=== PATIENT | female | born 1975 | race Caucasian/White ===

== ENCOUNTER 2024-03-23 20:43 | Observation (INO) ==
[2024-03-23] MEDS: ONDANSETRON INJ 2 MG/ML 2 ML VIAL IV STA ×2 (21:00→22:33)
[2024-03-23 21:30] LABS: BUN Creatinine Ratio 12.9 (10-20); Basophils # (auto) 0.05 K/uL (0.00-0.20); Basophils % (auto) 0.6 %; Calcium 9.6 mg/dl (8.6-10.3); Creatinine Clr Calc Pharmacy 146.8 ml/min; Eosinophils # (auto) 0.26 K/uL (0.00-0.50); Eosinophils % (auto) 3.2 %; Est GFR (African American) 123.6 ml/min; Est GFR (Non-African American) 106.6 ml/min; Hematocrit (blood only) 41.6 % (37.0-47.0); Hemoglobin 13.4 g/dl (12.0-16.0); Immature Granulocytes # (auto) 0.04 K/uL (0.01-0.20); Immature Granulocytes % (auto) 0.5 %; Lymphocytes # (auto) 1.48 K/uL (1.20-3.40); Lymphocytes % (auto) 18.1 %; Mean Corpuscular Hemoglobin 26.9 pg (25.0-34.0); Mean Corpuscular Hgb Conc 32.2 g/dL (32.0-36.0); Mean Corpuscular Volume 83.5 fL (80.0-100.0); Mean Platelet Volume 10.2 fL (9.4-12.4); Monocytes # (auto) 0.56 K/uL (0.11-0.59); Monocytes % (auto) 6.9 %; Neutrophils # (auto) 5.77 K/uL (1.40-6.50); Neutrophils % (auto) 70.7 %; Platelet Count 261 K/uL (130-400); Potassium 3.9 mmol/L (3.5-5.1); RDW Coefficient of Variation 14.2 % (11.5-14.5); RDW Standard Deviation 42.9 fL (36.4-46.3); Red Blood Count 4.98 M/uL (4.20-5.40); White Blood Count 8.16 K/ul (4.8-10.8)
[2024-03-23 21:44] LABS: Pregnancy Test, Serum Negative (Negative)
[2024-03-23 21:53] LABS: Albumin Globulin Ratio 1.3 (0.9-2); Albumin Level 4.3 gm/dl (3.4-5.0); Bilirubin,Total 2.4 mg/dl (0.2-1.0); Globulin 3.3 gm/dl (2.5-4.0); Total Protein 7.6 gm/dl (6.0-8.3)
--- NOTE | 2024-03-23 22:15 | Emergency Department Note ---
History of Present Illness General Chief complaint: GI Assessment Stated complaint: ABD PAIN, VOMITING, POOR APPETITE, HERNIA Time Seen by Provider: 03/23/24 22:12 History of Present Illness Maximum Pain Intensity: 6 NAME: ANDREW LORENZO AGE: 48 SEX: F : 1975 ARRIVES VIA: Walk-In INFORMANT: Patient ED PROVIDER(S): LIDIA Arndt, Liv Foy MD The patient is a pleasant 48-year-old female who arrives to the emergency department for evaluation of upper abdominal pain. She reports a history of a hiatal hernia, as well as GERD. She reports her low abdominal region feels tender and sore as well. She reports she has been vomiting since Tuesday/Tuesday of this week. She states she recently traveled from [facility] that to [place] and back to [place]. She reports her stool has been white in color, and not normal. She reports no dysuria, however states she has had some dark urine. She denies fever. Home Medications Medication Instructions Recorded Confirmed Type esomeprazole magnesium 20 mg 20 mg PO DAILY 02/20/21 03/24/24 History capsule,delayed release (Nexium) phentermine 15 mg capsule 15 mg PO DAILY #30 caps 01/24/24 03/24/24 Rx metformin 500 mg tablet,extended 500 mg PO BIDWMEAL #180 tabs 01/31/24 03/24/24 Rx release 24 hr Allergies Allergy/AdvReac Type Severity Reaction Status Date / Time nickel Allergy Intermediate *All Unverified 03/24/24 08:49 metals cause skin irritation grass pollen Allergy Unknown Verified 03/24/24 08:49 Sunscreen Allergy Intermediate Skin Uncoded 03/24/24 08:49 Irritation Past Med/Surg History Problem List (Updated 03/25/24 @ 00:49 by LIDIA Samayoa) Choledocholithiasis with obstruction Abnormal LFTs (Acute) Pancreatitis (Acute) Emesis, persistent Abdominal pain (Acute) Acute URI of multiple sites High triglycerides Prediabetes Urinary symptom or sign Left lateral ankle pain Vision changes Shortness of breath Influenza A Fatigue Obesity Seasonal allergies Routine health maintenance Screening for lipid disorders GERD (gastroesophageal reflux disease) Medical History History of gestational diabetes with 2 out of 3 pregnancies HH (hiatus hernia) History of colon polyps Gastritis History of gastroscopy 10/06/2018 & 10/30/2020 Surgical History History of salpingectomy History of colonoscopy 10/11/2017 (did have polyps & 1st degree hemorrhoids) 10/30/2020(results were normal History of ovarian cystectomy 2016 History of wisdom tooth extraction [id number] Family History Grandfather (Paternal) Myocardial infarction Father Diabetes Grandmother (Paternal) Cancer Pancreatic cancer Denies family history of Ovarian cancer Prostate cancer Breast cancer Colorectal cancer Social History Smoking Status: Never smoker Second Hand Exposure: No; Do You Dip or Chew Tobacco: No; Hx Alcohol Use: No Hx Substance Use: No Preferred Language: Frisian Communication Ability: Effective Clinical Practice Consultant Required: No Beliefs That Will Affect Care: None marital status: / Current Living Situation: Parent Current Living Situation Comment: Lives w/parents & kids current occupational status: employed current occupation: Self employed How many Children do You have: 3 Feels Safe at Home: Yes caffeine: No Dental Care, Regularly: No Physical Activity Frequency: 1-2 Times per Week Seatbelt Use: always Sunscreen Use: No Physical Exam Vital Signs Vital Signs - 24 hr 03/24/24 01:33 03/24/24 02:03 03/24/24 02:30 Pulse Rate 81 56 L Respiratory Rate 12 13 Blood Pressure 177/113 H 156/99 H 164/96 H Blood Pressure Mean 134 118 131 Pulse Oximetry 95 94 03/24/24 02:46 Pulse Rate 66 Respiratory Rate Blood Pressure Blood Pressure Mean Pulse Oximetry VITALS: Vitals are noted on the nurse's note and reviewed by myself. Vital signs stable. GENERAL: 48-year-old female, in no acute distress, nondiaphoretic, well- developed well-nourished. SKIN: The skin was without rashes, erythema, edema, or bruising. HEAD: Normocephalic atraumatic. HEART: Regular rate and rhythm without murmurs gallops or rubs. LUNGS: Clear to auscultation bilaterally without wheezes, rales or rhonchi. No retractions or accessory muscle use. ABDOMEN: Positive bowel sounds x 4. Soft, tender to palpation diffusely across the upper abdomen, with no rebound tenderness or guarding. MUSCULOSKELETAL: No muscle atrophy, erythema, or edema noted. Normal gait. Strength 5/5 throughout. NEURO: Patient was alert and oriented to person place and time. No focal neurological deficits. Course Administered Medications Pantoprazole Sodium 40 mg/ (Syringe) 10 mls @ 5 mls/min IV DAILY@1100 [facility] Stop: 04/23/24 10:59 Last Admin: 03/24/24 11:07 Dose: 5 mls/min Documented By: LEONARD Famotidine (Pepcid 20mg Iv Push) 20 mg in 5 mls @ 2.5 mls/min IV Q12H [facility] Stop: 04/23/24 17:59 Last Admin: 03/24/24 18:13 Dose: 2.5 mls/min Documented By: JEANETTE Morphine Sulfate (Morphine Sulfate 2 Mg/Ml Carp) 2 mg IV Q3H PRN PRN Reason: Pain (1-5 intensity) Stop: 04/07/24 06:12 Last Admin: 03/24/24 21:36 Dose: 2 mg Documented By: MACK Ondansetron HCl (Ondansetron Inj 2 Mg/Ml 2 Ml Vial) 4 mg IV Q6H PRN PRN Reason: Nausea Stop: 04/23/24 06:12 Last Admin: 03/24/24 07:22 Dose: 4 mg Documented By: MMKarishma Discontinued Medications Sodium Chloride (Nss) 500 mls @ 999 mls/hr IV .Q31M STA Stop: 03/23/24 21:26 Last Infusion: 03/23/24 23:41 Dose: Infused Documented By: Admin: 03/23/24 22:31 Dose: 999 mls/hr Documented By: CHARLOTTE Sodium Chloride (Nss) 1,000 mls @ 999 mls/hr IV .Q1H1M ONE Stop: 03/23/24 23:18 Last Infusion: 03/23/24 23:41 Dose: Infused Documented By: Admin: 03/23/24 22:32 Dose: 999 mls/hr Documented By: CHARLOTTE Acetaminophen (Ofirmev) 1,000 mg in 100 mls @ 400 mls/hr IV NOW STA Stop: 03/23/24 22:32 Last Infusion: 03/23/24 23:39 Dose: Infused Documented By: Admin: 03/23/24 22:34 Dose: 400 mls/hr Documented By: CHARLOTTE Sodium Chloride (Nss) 1,000 mls @ 999 mls/hr IV .Q1H1M ONE Stop: 03/24/24 01:55 Last Infusion: 03/24/24 02:39 Dose: Infused Documented By: Admin: 03/24/24 01:22 Dose: 999 mls/hr Documented By: CHARLOTTE Famotidine (Pepcid 20mg Iv Push) 20 mg in 5 mls @ 2.5 mls/min IV NOW STA Stop: 03/24/24 06:24 Last Admin: 03/24/24 06:42 Dose: 2.5 mls/min Documented By: Lactated Ringer's (Lr) 1,000 mls @ 150 mls/hr IV .Q6H40M DENYS Stop: 03/24/24 21:19 Last Infusion: 03/24/24 22:46 Dose: Infused Documented By: Admin: 03/24/24 16:05 Dose: 150 mls/hr Documented By: Infusion: 03/24/24 14:50 Dose: Infused Documented By: Admin: 03/24/24 08:09 Dose: 150 mls/hr Documented By: LEONARD Ioversol (Optiray 320 125ml) 115 ml IV ONCE ONE Stop: 03/23/24 23:24 Last Admin: 03/23/24 23:24 Dose: 115 ml Documented By: RICHIE Ketorolac Tromethamine (Ketorolac Tromethamine 15 Mg/Ml Vial) 15 mg IV NOW ONE Stop: 03/23/24 22:19 Last Admin: 03/23/24 22:33 Dose: 15 mg Documented By: CHARLOTTE Morphine Sulfate (Morphine Sulfate 4 Mg/Ml 1 Ml Carp\Vial) 4 mg IV NOW STA Stop: 03/24/24 01:25 Last Admin: 03/24/24 01:28 Dose: 4 mg Documented By: CHARLOTTE Ondansetron HCl (Ondansetron Inj 2 Mg/Ml 2 Ml Vial) 4 mg IV NOW STA Stop: 03/23/24 20:57 Last Admin: 03/23/24 21:00 Dose: 4 mg Documented By: SKY Ondansetron HCl (Ondansetron Inj 2 Mg/Ml 2 Ml Vial) 4 mg IV NOW STA Stop: 03/23/24 22:19 Last Admin: 03/23/24 22:33 Dose: 4 mg Documented By: CHARLOTTE Medical Decision Making Differential Diagnosis Appendicitis, ovarian cyst, infections, diverticulitis, UTI, obstruction, mesenteric ischemia, aortic pathology, inflammatory bowel disease, renal colic, PUD, pancreatitis, biliary pathology, hernia, volvulus, constipation, as well as other pathologies. Medical Records Attestation: I reviewed the patient's medical records. Home Medications Current Medication List: was personally reviewed by me Laboratory Data Attestation: I reviewed the patient's lab results. CBC shows no leukocytosis, with a stable hemoglobin and hematocrit, CMP is unremarkable. AST, ALT, alk phos, total bili elevated. Lipase 5501. 03/23/24 20:58 03/23/24 20:58 Lab Results 03/23/24 Range/Units 20:58 WBC 8.16 (4.8-10.8) K/ul RBC 4.98 (4.20-5.40) M/uL Hgb 13.4 (12.0-16.0) g/dl Hct 41.6 (37.0-47.0) % MCV 83.5 (80.0-100.0) fL MCH 26.9 (25.0-34.0) pg MCHC 32.2 (32.0-36.0) g/dL RDW Std Deviation 42.9 (36.4-46.3) fL RDW Coeff of Gagan 14.2 (11.5-14.5) % Plt Count 261 (130-400) K/uL MPV 10.2 (9.4-12.4) fL Immature Gran % (Auto) 0.5 % Neut % (Auto) 70.7 % Lymph % (Auto) 18.1 % [place] % (Auto) 6.9 % Eos % (Auto) 3.2 % Baso % (Auto) 0.6 % Neut # (Auto) 5.77 (1.40-6.50) K/uL Lymph # (Auto) 1.48 (1.20-3.40) K/uL [place] # (Auto) 0.56 (0.11-0.59) K/uL Eos # (Auto) 0.26 (0.00-0.50) K/uL Baso # (Auto) 0.05 (0.00-0.20) K/uL Immature Gran # (Auto) 0.04 (0.01-0.20) K/uL Sodium 136 (136-145) mmol/L Potassium 3.9 (3.5-5.1) mmol/L Chloride 103 (98-107) mmol/L Carbon Dioxide 24 (21-32) mmol/L Anion Gap 9 (3-11) BUN 8 (6-23) mg/dl Creatinine 0.62 (0.6-1.2) mg/dl Est Cr Clr Drug Dosing 146.8 ml/min Est GFR ( Amer) 123.6 ml/min Est GFR (Non-Af Amer) 106.6 ml/min BUN/Creatinine Ratio 12.9 (10-20) Glucose 127 H (70-99(Fasting)) mg/dl Calcium 9.6 (8.6-10.3) mg/dl Total Bilirubin 2.4 H (0.2-1.0) mg/dl Direct Bilirubin 1.7 H (0-0.2) mg/dl AST 505 H (13-39) U/L ALT 856 H (7-52) U/L Alkaline Phosphatase 226 H (34-104) U/L Total Protein 7.6 (6.0-8.3) gm/dl Albumin 4.3 (3.4-5.0) gm/dl Globulin 3.3 (2.5-4.0) gm/dl Albumin/Globulin Ratio 1.3 (0.9-2) Lipase 5501 H (11-82) U/L HCG, Qual Negative (Negative) Blood Pressure Blood Pressure Findings: Elevated blood pressure Blood Pressure Disposition: elevated BP felt to be situational MDM Narrative The patient is a pleasant 48-year-old female who arrives to the emergency department for evaluation of the above-stated complaint. Upon examination the patient appears to have discomfort in the upper abdomen, with diffuse tenderness in the lower abdomen as well. A saline lock was established, CBC, CMP, lipase, hepatic panel, serum , were obtained. CBC shows no leukocytosis, with a stable hemoglobin and hematocrit, CMP is unremarkable. AST, ALT, alk phos, total bili elevated. Lipase 5501. CT imaging of the abdomen and pelvis was obtained with IV contrast which showed no acute findings, cholelithiasis was appreciated, however specifically no cholecystitis, or common bile duct dilation. Ultrasound imaging of the gallbladder was obtained which showed no dilation of the common bile duct, specifically no obstructing stones. The patient was provided 2 L of normal saline, as well as 4 mg of IV Zofran, and 4 mg of IV morphine for pain control. Upon reevaluation I discussed the elevated lipase, and hepatic panel results. The patient reports she does not currently drink alcohol, and states no previous history of pancreatitis. Consult was obtained from gastroenterology who recommended MRCP, and hospital admission for management of the pancreatitis. I did consult general surgery who stated the patient is nonsurgical, and should be followed by gastroenterology. Case management was contacted regarding hospital admission, who facilitated contact with the [facility] hospitalist group. Dr. Melissa Hogan from the [facility] hospitalist group agreed to accept the patient for further workup and care. Please refer to her documentation for further patient treatment. Continuous bus monitor: Order was placed for continuous bus monitor. Patient was placed on the bus monitor. Patient was noted to be in normal sinus rhythm at an initial rate of 64 bpm. Impression & Plan Abnormal LFTs, Pancreatitis, Abdominal pain Discharge Plan Visit Data Chief Complaint: GI Assessment Stated Complaint: ABD PAIN, VOMITING, POOR APPETITE, HERNIA ED Provider: Liv Foy ED Midlevel Provider: Alcira Wynne Discharge Problem: Abnormal LFTs, Pancreatitis, Abdominal pain Patient Disposition: Admitted As Inpatient Discharge Instructions Interventions: ED Discharge Assessment Last Done: 03/24/24 06:13
[2024-03-23] MEDS: SODIUM CHLORIDE 0.9% 500 ML IV STA (22:31)
[2024-03-23] MEDS: SODIUM CHLORIDE 0.9% 1,000 ML IV ONE (22:32)
[2024-03-23] MEDS: KETOROLAC TROMETHAMINE 15 MG/ML VIAL IV ONE (22:33)
[2024-03-23] MEDS: ACETAMINOPHEN 1,000 MG/100 ML VIAL IV STA (22:34)
[2024-03-23] MEDS: OPTIRAY 320 125ml IV ONE (23:24)
--- NOTE | 2024-03-24 00:51 | CT Scan Report ---
Exam(s): CT ABDOMEN + PELVIS With Contrast IV Amt: 93 ml EXAM: CT Abdomen and Pelvis With Intravenous Contrast CLINICAL HISTORY: Reason for exam: epigastric pain. TECHNIQUE: Axial computed tomography images of the abdomen and pelvis with intravenous contrast. CTDI is 28 mGy and DLP is 1485 mGy-cm. Automated exposure control was utilized for the study. A dose lowering technique was utilized adhering to the principles of ALARA. CONTRAST: Patient received 93 ml of IV contrast COMPARISON: No relevant prior studies available. FINDINGS: Lung bases: Unremarkable. No mass. No consolidation. ABDOMEN: Liver: Fatty infiltration of liver. Gallbladder and bile ducts: Cholelithiasis without CT evidence to suggest acute cholecystitis. No ductal dilation. Pancreas: Unremarkable. No mass. No ductal dilation. Spleen: Unremarkable. No splenomegaly. Adrenals: Unremarkable. No mass. Kidneys and ureters: Subcentimeter hypodensity lower pole right kidney representing cyst. 1 cm hypodensity lower pole left kidney likely representing a cyst. No hydronephrosis. Stomach and bowel: Diverticulosis without evidence of diverticulitis. No obstruction. PELVIS: Appendix: Normal appearing appendix. Bladder: Unremarkable. No mass. Reproductive: Unremarkable as visualized. ABDOMEN and PELVIS: Intraperitoneal space: Unremarkable. No free air. No significant fluid collection. Bones/joints: No acute fracture. No dislocation. Soft tissues: Unremarkable. Vasculature: Unremarkable. No abdominal aortic aneurysm. Lymph nodes: Unremarkable. No enlarged lymph nodes. IMPRESSION: No acute findings in the abdomen or pelvis. Electronically signed by: Miguel A Levine MD 03/24/24 00:51 AM
[2024-03-24] MEDS: SODIUM CHLORIDE 0.9% 1,000 ML IV ONE (01:22)
[2024-03-24] MEDS: MoRPHine SULFATE 4 MG/ML 1 ML CARP\\VIAL IV STA (01:28)
--- NOTE | 2024-03-24 02:02 | History & Physical Report ---
"Date of Service March 24, 2024 Assessment & Plan (1) Abdominal pain: (2) Emesis, persistent: (3) GERD (gastroesophageal reflux disease): Plan Pancreatitis | Abdominal Pain | Frequent Nausea and Emesis -CT A/P, ultrasound completed which shows cholelithiasis without acute cholecystitis -Lipase elevated at 5501 -Elevated AST, ALT, alk phos -ED provider discussed with GI, consultation and MRCP ordered -Continue with anti-emetics, will add famotidine and protonix in setting of chronic GERD -IV hydration, NPO for now. IV pain medication PRN. -Repeat CBC, CMP in a.m. Admit to med/surg Diet: NPO, IVF VTE Prophylaxis: low risk, defer prophylaxis at this time Code Status: Full Code History of Present Illness Primary Care Provider: Ninfa Barajas MD Isaura Garsia is a 48 year-old female who presented to the ED for ongoing symptoms of abdominal pain, nausea for several weeks. She has a PMH of prediabetes, GERD, hiatal hernia, and obesity. She reports that for several weeks she has had episodes of nausea, vomiting and generally feeling unwell. Has history of recent travel to [facility] and then [place] in mid February where she states she could barely take in any food because it would immediately lead to vomiting. States she initially thought it was just secondary to jet-lag or a food intolerance, and when she returned to [place] she resumed her home metformin which only seemed to make her symptoms worsen. States in the past month she has had BMs that have ranged from dark/tar like several weeks ago to pale/watery/pencil thin in the past few days. Today she states that the abdominal discomfort does not seem to be localized to one precise region. Denies any recent insect bites while at home or abroad in [facility]. ED Course: -CT A/P, US abdomen -CBC, CMP, Lipase, test Allergies Allergy/AdvReac Type Severity Reaction Status Date / Time grass pollen Allergy Unknown Verified 03/24/24 06:21 Home Medications Medication Instructions Recorded Confirmed Type acetaminophen 325 mg capsule 400 mg PO Q6H PRN 02/20/21 01/24/24 History (Tylenol) esomeprazole magnesium 20 mg 20 mg PO DAILY 02/20/21 01/24/24 History capsule,delayed release (Nexium) loratadine 10 mg tablet (Claritin) 10 mg PO DAILY PRN allergy symptoms 02/20/21 01/24/24 History ibuprofen 200 mg tablet 200 mg PO Q6H PRN 07/21/23 01/24/24 History doxycycline monohydrate 100 mg 100 mg PO BID #20 caps 01/13/24 01/24/24 Rx capsule phentermine 15 mg capsule 15 mg PO DAILY #30 caps 01/24/24 01/24/24 Rx metformin 500 mg tablet,extended 500 mg PO BIDWMEAL #180 tabs 01/31/24 Rx release 24 hr Past Med/Surg History Problem List Emesis, persistent Abdominal pain Acute URI of multiple sites High triglycerides Prediabetes Urinary symptom or sign Left lateral ankle pain Vision changes Shortness of breath Influenza A Fatigue Obesity Seasonal allergies Routine health maintenance Screening for lipid disorders GERD (gastroesophageal reflux disease) Medical History History of gestational diabetes with 2 out of 3 pregnancies HH (hiatus hernia) History of colon polyps Gastritis History of gastroscopy 10/06/2018 & 10/30/2020 Surgical History History of salpingectomy History of colonoscopy 10/11/2017 (did have polyps & 1st degree hemorrhoids) 10/30/2020(results were normal History of ovarian cystectomy 2016 History of wisdom tooth extraction [id number] Family History Grandfather (Paternal) Myocardial infarction Father Diabetes Grandmother (Paternal) Cancer Pancreatic cancer Denies family history of Ovarian cancer Prostate cancer Breast cancer Colorectal cancer Social History Smoking Status: Never smoker Second Hand Exposure: No; Do You Dip or Chew Tobacco: No; Hx Alcohol Use: No Hx Substance Use: No Preferred Language: Russian Communication Ability: Effective Administration Internship Required: No Beliefs That Will Affect Care: None marital status: / Current Living Situation: Parent Current Living Situation Comment: Lives w/parents & kids current occupational status: employed current occupation: Self employed How many Children do You have: 3 Feels Safe at Home: Yes caffeine: No Dental Care, Regularly: No Physical Activity Frequency: 1-2 Times per Week Seatbelt Use: always Sunscreen Use: No Review of Systems Review of Systems: As per above Physical Exam 2 Constitutional: WD/WN, vitals as above Eyes: no conjunctival abnormality ENMT: Ears: no external ear abnormality Nose: no external nose abnormality Slightly tacky mucous membranes Respiratory: normal respiratory effort, lungs clear to auscultation Cardiovascular: Rate/Rhythm: regular rate and regular rhythm Extremities: no edema Gastrointestinal (Abdomen): Inspection/Auscultation: abdomen normal to inspection Percussion/Palpation: abdomen soft; abdomen nontender and no guarding Musculoskeletal: Moves all limbs independently Skin: no rashes, warm and dry Psychiatric: A+Ox3, euthymic affect Results & Data Results & Data Vital Signs (Past 12 Hours) Vital Signs Temp Pulse Pulse Resp BP BP Pulse Ox 03/24/24 00:30 62 12 165/111 H 94 03/23/24 23:30 71 12 157/92 H 96 03/23/24 23:06 65 12 162/100 H 97 03/23/24 22:37 64 15 177/101 H 97 03/23/24 22:31 73 03/23/24 20:53 36.0 C L 84 18 159/106 H 94 O2 Del Method 03/24/24 00:30 03/23/24 23:30 03/23/24 23:06 03/23/24 22:37 Room Air 03/23/24 22:31 03/23/24 20:53 Room Air Laboratory Results Laboratory Results WBC 8.16 K/ul (4.8-10.8) 03/23/24 20:58 RBC 4.98 M/uL (4.20-5.40) 03/23/24 20:58 Hgb 13.4 g/dl (12.0-16.0) 03/23/24 20:58 Hct 41.6 % (37.0-47.0) 03/23/24 20:58 MCV 83.5 fL (80.0-100.0) 03/23/24 20:58 MCH 26.9 pg (25.0-34.0) 03/23/24 20:58 MCHC 32.2 g/dL (32.0-36.0) 03/23/24 20:58 RDW Std Deviation 42.9 fL (36.4-46.3) 03/23/24 20:58 RDW Coeff of Gagan 14.2 % (11.5-14.5) 03/23/24 20:58 Plt Count 261 K/uL (130-400) 03/23/24 20:58 MPV 10.2 fL (9.4-12.4) 03/23/24 20:58 Immature Gran % (Auto) 0.5 % 03/23/24 20:58 Neut % (Auto) 70.7 % 03/23/24 20:58 Lymph % (Auto) 18.1 % 03/23/24 20:58 [place] % (Auto) 6.9 % 03/23/24 20:58 Eos % (Auto) 3.2 % 03/23/24 20:58 Baso % (Auto) 0.6 % 03/23/24 20:58 Neut # (Auto) 5.77 K/uL (1.40-6.50) 03/23/24 20:58 Lymph # (Auto) 1.48 K/uL (1.20-3.40) 03/23/24 20:58 [place] # (Auto) 0.56 K/uL (0.11-0.59) 03/23/24 20:58 Eos # (Auto) 0.26 K/uL (0.00-0.50) 03/23/24 20:58 Baso # (Auto) 0.05 K/uL (0.00-0.20) 03/23/24 20:58 Immature Gran # (Auto) 0.04 K/uL (0.01-0.20) 03/23/24 20:58 Sodium 136 mmol/L (136-145) 03/23/24 20:58 Potassium 3.9 mmol/L (3.5-5.1) 03/23/24 20:58 Chloride 103 mmol/L (98-107) 03/23/24 20:58 Carbon Dioxide 24 mmol/L (21-32) 03/23/24 20:58 Anion Gap 9 (3-11) 03/23/24 20:58 BUN 8 mg/dl (6-23) 03/23/24 20:58 Creatinine 0.62 mg/dl (0.6-1.2) 03/23/24 20:58 Est Cr Clr Drug Dosing 146.8 ml/min 03/23/24 20:58 Est GFR ( Amer) 123.6 ml/min 03/23/24 20:58 Est GFR (Non-Af Amer) 106.6 ml/min 03/23/24 20:58 BUN/Creatinine Ratio 12.9 (10-20) 03/23/24 20:58 Glucose 127 mg/dl (70-99(Fasting)) H 03/23/24 20:58 Calcium 9.6 mg/dl (8.6-10.3) 03/23/24 20:58 Total Bilirubin 2.4 mg/dl (0.2-1.0) H 03/23/24 20:58 Direct Bilirubin 1.7 mg/dl (0-0.2) H 03/23/24 20:58 AST 505 U/L (13-39) H 03/23/24 20:58 ALT 856 U/L (7-52) H 03/23/24 20:58 Alkaline Phosphatase 226 U/L (34-104) H 03/23/24 20:58 Total Protein 7.6 gm/dl (6.0-8.3) 03/23/24 20:58 Albumin 4.3 gm/dl (3.4-5.0) 03/23/24 20:58 Globulin 3.3 gm/dl (2.5-4.0) 03/23/24 20:58 Albumin/Globulin Ratio 1.3 (0.9-2) 03/23/24 20:58 Lipase 5501 U/L (11-82) H 03/23/24 20:58 HCG, Qual Negative (Negative) 03/23/24 20:58 Impressions Abdomen/Pelvis CT 03/23/24 22:17 Exam(s): CT ABDOMEN + PELVIS With Contrast IV Amt: 93 ml EXAM: CT Abdomen and Pelvis With Intravenous Contrast CLINICAL HISTORY: Reason for exam: epigastric pain. TECHNIQUE: Axial computed tomography images of the abdomen and pelvis with intravenous contrast. CTDI is 28 mGy and DLP is 1485 mGy-cm. Automated exposure control was utilized for the study. A dose lowering technique was utilized adhering to the principles of ALARA. CONTRAST: Patient received 93 ml of IV contrast COMPARISON: No relevant prior studies available. FINDINGS: Lung bases: Unremarkable. No mass. No consolidation. ABDOMEN: Liver: Fatty infiltration of liver. Gallbladder and bile ducts: Cholelithiasis without CT evidence to suggest acute cholecystitis. No ductal dilation. Pancreas: Unremarkable. No mass. No ductal dilation. Spleen: Unremarkable. No splenomegaly. Adrenals: Unremarkable. No mass. Kidneys and ureters: Subcentimeter hypodensity lower pole right kidney representing cyst. 1 cm hypodensity lower pole left kidney likely representing a cyst. No hydronephrosis. Stomach and bowel: Diverticulosis without evidence of diverticulitis. No obstruction. PELVIS: Appendix: Normal appearing appendix. Bladder: Unremarkable. No mass. Reproductive: Unremarkable as visualized. ABDOMEN and PELVIS: Intraperitoneal space: Unremarkable. No free air. No significant fluid collection. Bones/joints: No acute fracture. No dislocation. Soft tissues: Unremarkable. Vasculature: Unremarkable. No abdominal aortic aneurysm. Lymph nodes: Unremarkable. No enlarged lymph nodes. IMPRESSION: No acute findings in the abdomen or pelvis. Electronically signed by: Miguel A Levine MD 03/24/24 00:51 AM Gallbladder Ultrasound 03/24/24 00:00 Exam(s): US GALLBLADDER EXAM: US Abdomen Limited, Gallbladder CLINICAL HISTORY: Reason for exam: elevated AST, ALT, ALk phos.. TECHNIQUE: Real-time ultrasound of the right upper quadrant with image documentation. COMPARISON: No relevant prior studies available. FINDINGS: Liver: Liver is of diffusely increased echogenicity consistent with fatty infiltration of the same. Gallbladder: Cholelithiasis. Sonographic Dougherty's sign is negative. No pericholecystic fluid. Common bile duct: Unremarkable as visualized. No stones. No dilation. Pancreas: Pancreas is obscured by bowel gas. Right kidney: Unremarkable. No stones. Right kidney measures 11.3 cm without hydronephrosis. IMPRESSION: Fatty infiltration of liver Cholelithiasis without evidence of acute cholecystitis Electronically signed by: Miguel A Levine MD 03/24/24 03:09 AM Supervising Physician Co-Signing Physician Notes Patient seen and examined, chart reviewed, case discussed with Dr. Morris and I agree with the assessment and plan as above Resident Activity Tracking Resident Involvement: Resident Care Provided Care Provided: Adult [facility] Medicine"
[2024-03-24 02:26] LABS: Bilirubin Direct 1.7 mg/dl (0-0.2)
--- NOTE | 2024-03-24 03:10 | Ultrasound Report ---
Exam(s): US GALLBLADDER EXAM: US Abdomen Limited, Gallbladder CLINICAL HISTORY: Reason for exam: elevated AST, ALT, ALk phos.. TECHNIQUE: Real-time ultrasound of the right upper quadrant with image documentation. COMPARISON: No relevant prior studies available. FINDINGS: Liver: Liver is of diffusely increased echogenicity consistent with fatty infiltration of the same. Gallbladder: Cholelithiasis. Sonographic Dougherty's sign is negative. No pericholecystic fluid. Common bile duct: Unremarkable as visualized. No stones. No dilation. Pancreas: Pancreas is obscured by bowel gas. Right kidney: Unremarkable. No stones. Right kidney measures 11.3 cm without hydronephrosis. IMPRESSION: Fatty infiltration of liver Cholelithiasis without evidence of acute cholecystitis Electronically signed by: Miguel A Levine MD 03/24/24 03:09 AM
[2024-03-24] MEDS ORDERED: MELATONIN 3 MG TAB PO PRN (06:13)
[2024-03-24] MEDS ORDERED: MoRPHine SULFATE 4 MG/ML 1 ML CARP\\VIAL IV PRN (06:13)
[2024-03-24] MEDS: FAMOTIDINE 20MG IV PUSH 20 MG/5 ML SYR IV STA (06:42)
[2024-03-24] MEDS: ONDANSETRON INJ 2 MG/ML 2 ML VIAL IV PRN (07:22)
--- NOTE | 2024-03-24 07:50 | Billing Data ---
Date of Service March 24, 2024 Coding Level of Care Code 99384 INT INP/OBS CARE
[2024-03-24 08:03] LABS: Appearance Urine Clear (Clear); Bacteria Urine Automated None Seen (None Seen); Bilirubin Urine 2+ (Negative); Blood Urine Negative (Negative); Cast Urine Automated 0-2 /lpf (0-2); Color Urine Dark Yellow; Epithelial Cell Urine Auto 0-2 /hpf (0-2); Glucose Urine UA Negative (Negative); Ketones Urine 2+ (Negative); Leukocyte Esterase Urine Negative (Negative); Nitrite Urine Negative (Negative); Protein Urine Trace (Negative); RBC Urine Automated 0-2 /hpf (0-2); Specific Gravity Urine > 1.045 (1.000-1.030); Urobilinogen Urine Positive (Negative); WBC Urine Automated 0-5 /hpf (0-5)
[2024-03-24] MEDS: LACTATED RINGER'S 1,000 ML IV SCH (08:09)
--- NOTE | 2024-03-24 08:29 | Hospitalist Progress Note ---
Date of Service March 24, 2024 Assessment & Plan (1) Choledocholithiasis with obstruction: Plan: MRCP radiologist impression: 3mm possibly obstructing stone in distal common bile duct, 7mm dilation of common bile duct; gallstones visualized in gallbladder but no signs of acute cholecystitis - lipase 5501 - total bilirubin 2.4, direct bili 1.7 - AST 505, ALT 856, Alk Phos 226 - due to no ERCP capability at [facility], pt is pending transfer to [facility] - transfer likely 03/25/24 for procedure Tuesday03/26/24 or Tuesday03/27/24, patient in stable condition - continue zofran for nausea prn - full fluids diet as tolerated (2) Pancreatitis: Plan: lipase 5501, see above assessment - continue full fluids diet as tolerated (3) GERD (gastroesophageal reflux disease): Plan: chronic, with hiatal hernia - continue famotidine and protonix (4) Emesis, persistent: Plan: resolved, continue zofran for nausea prn Admission and Anticipated Discharge Date Admission Date: March 24, 2024 Supervising Physician Co-Signing Physician Notes I personally examined the patient and verified katz points of history and exam, discussed case, and agree with decision making and plan documented by Dr. Almendarez. Patient presenting with acute pancreatitis, elevated lipase, transaminase, bilirubin, and alkaline phosphatase levels on admission. MRCP shows equivocal 3 mm stone at distal common bile duct in addition to trace edema surrounding pancreatic tail. Recommendation is for patient to proceed with ERCP, unfortunately that is not performed at [facility] at this time. Arranging for transport. Subjective Patient was seen and examined at bedside in ED this morning, lying down with head of bed elevated to 30 degrees, not in acute distress. Notes having nausea and vomiting for the past several weeks, abdominal pain wor sening over the past day with less appetite than usual. Notes she first started vomiting when she was in [place] in January but denies anyone around her being sick or eating anything suspicious or out of the ordinary. Denies any fever, chest pain, SOB. Denies any vomiting since previous night in ED, has been feeling less nauseated and tolerating ice chips but getting hungry. Review of Systems Review of Systems: All systems reviewed & are unremarkable except as noted in HPI & below Physical Exam Constitutional: WD/WN, vitals as above + obese Eyes: PERRL, conjunctivae normal, anicteric sclerae Neck: normal visual inspection Respiratory: normal respiratory effort, lungs clear to auscultation Cardiovascular: RRR, no murmur, no edema Gastrointestinal (Abdomen): Percussion/Palpation: + abdomen tender and abdomen soft tender to palpation particularly LUQ and suprapubic region no arrest of breathing with inhalation during palpation inferior to R ribcage no ecchymosis of abdomen, nonrigid, no guarding Musculoskeletal: no cyanosis or clubbing, extremities motor strength 5/5 Skin: no rashes, warm and dry Results & Data Results & Data Vital Signs (Past 12 Hours) Vital Signs Temp Pulse Pulse Resp BP BP Pulse Ox 03/24/24 07:31 57 L 20 144/90 H 95 03/24/24 02:46 66 03/24/24 02:30 164/96 H 03/24/24 02:03 56 L 13 156/99 H 94 03/24/24 01:33 81 12 177/113 H 95 03/24/24 00:30 62 12 165/111 H 94 03/23/24 23:30 71 12 157/92 H 96 03/23/24 23:06 65 12 162/100 H 97 03/23/24 22:37 64 15 177/101 H 97 03/23/24 22:31 73 03/23/24 20:53 36.0 C L 84 18 159/106 H 94 O2 Del Method 03/24/24 07:31 Room Air 03/24/24 02:46 03/24/24 02:30 03/24/24 02:03 03/24/24 01:33 03/24/24 00:30 03/23/24 23:30 03/23/24 23:06 03/23/24 22:37 Room Air 03/23/24 22:31 03/23/24 20:53 Room Air Resident Activity Tracking Resident Involvement: Resident Care Provided Care Provided: Adult Hospital Medicine
[2024-03-24] MEDS: PANTOprazole 40 MG in SYRINGE 0 ML IV SCH (11:07)
--- NOTE | 2024-03-24 11:27 | Gastrointestinal Consultation ---
Date of Consultation March 24, 2024 Assessment & Plan (1) Pancreatitis: (2) GERD (gastroesophageal reflux disease): (3) Abnormal LFTs: Plan Pancreatitis The patient has pancreatitis by his clinical history as well as by laboratory finding of elevated lipase however a CAT scan is not very remarkable she denies drinking she is not on any medications on a regular basis that can cause pancreatitis on the ultrasound there was no abnormalities of the bile duct however at the current time I would 1. Keep n.p.o. except for ice chips 2. IV hydration and analgesia 3. Obtain MRCP to evaluate for any CBD stones Abnormal LFTs Patient has elevation of her LFTs that could be secondary to an impacted stone however the ultrasound did not show any abnormality of the bile duct at the current time I would 1. Obtain MRCP 2. Check hepatitis panel as well as ELVIN levels 3. Follow LFTs Thank you for allowing us to take part in the care of your patient we will continue to follow her with you History of Present Illness Reason for Consultation: Acute pancreatitis Requesting Physician: Vince Mckenna Attending Physician: Ally Joe, History of Present Illness Very pleasant 48-year-old female was admitted to the ER with complaints of abdominal pain nausea as well as inability to tolerate food who on evaluation was found to have an elevated lipase she was also having abdominal pain she states she has had symptoms like this in the past but not of this severity in the ER as mentioned she was found to have a markedly elevated lipase her and her transaminases were also elevated as well as a bilirubin she had an ultrasound which did not show any abnormalities of common bile duct she also had a CT scan which of note did not really show any pancreatic abnormalities however his symptoms are quite consistent with pancreatitis she has manage history of reflux as well as a hiatal hernia and she is on a PPI and she takes Nexium as an outpatient Allergies Allergy/AdvReac Type Severity Reaction Status Date / Time nickel Allergy Intermediate *All Unverified 03/24/24 08:49 metals cause skin irritation grass pollen Allergy Unknown Verified 03/24/24 08:49 Sunscreen Allergy Intermediate Skin Uncoded 03/24/24 08:49 Irritation Home Medications Medication Instructions Recorded Confirmed Type esomeprazole magnesium 20 mg 20 mg PO DAILY 02/20/21 03/24/24 History capsule,delayed release (Nexium) phentermine 15 mg capsule 15 mg PO DAILY #30 caps 01/24/24 03/24/24 Rx metformin 500 mg tablet,extended 500 mg PO BIDWMEAL #180 tabs 01/31/24 03/24/24 Rx release 24 hr Patient History Medical History History of gestational diabetes with 2 out of 3 pregnancies HH (hiatus hernia) History of colon polyps Gastritis History of gastroscopy 10/06/2018 & 10/30/2020 Surgical History History of salpingectomy History of colonoscopy 10/11/2017 (did have polyps & 1st degree hemorrhoids) 10/30/2020(results were normal History of ovarian cystectomy 2016 History of wisdom tooth extraction [id number] Family History Grandfather (Paternal) Myocardial infarction Father Diabetes Grandmother (Paternal) Cancer Pancreatic cancer Denies family history of Ovarian cancer Prostate cancer Breast cancer Colorectal cancer Social History Smoking Status: Never smoker Second Hand Exposure: No; Do You Dip or Chew Tobacco: No; Hx Alcohol Use: No Hx Substance Use: No Preferred Language: Kiswahili Communication Ability: Effective Canvas Baster Jumpbasting Required: No Beliefs That Will Affect Care: None marital status: / Current Living Situation: Parent Current Living Situation Comment: Lives w/parents & kids current occupational status: employed current occupation: Self employed How many Children do You have: 3 Feels Safe at Home: Yes caffeine: No Dental Care, Regularly: No Physical Activity Frequency: 1-2 Times per Week Seatbelt Use: always Sunscreen Use: No Review of Systems Review of Systems: A 10 point review of systems was done Physical Exam Constitutional: WD/WN, vitals as above Respiratory: normal respiratory effort, lungs clear to auscultation Cardiovascular: RRR, no murmur, no edema Gastrointestinal (Abdomen): normal bowel sounds, soft, nontender, no hepatosplenomegaly Results & Data Vital Signs (Past 12 Hours) Vital Signs Pulse Pulse Resp BP BP Pulse Ox O2 Del Method 03/24/24 10:10 61 18 131/76 95 Room Air 03/24/24 07:31 57 L 20 144/90 H 95 Room Air 03/24/24 02:46 66 03/24/24 02:30 164/96 H 03/24/24 02:03 56 L 13 156/99 H 94 03/24/24 01:33 81 12 177/113 H 95 03/24/24 00:30 62 12 165/111 H 94 03/23/24 23:30 71 12 157/92 H 96 Diagnostic Findings The patient had an ultrasound which did not reveal any abnormality of the bile duct she had CT scan which did not actually reveal any pancreatitis PG Care Time/CCT Total # of Minutes Spent Total Time Spent with Patient: Total time spent is greater than 50% in coordination of care (as documented) at patient's floor/unit and/or counseling patient: [place] [address] OFFICE CONSULT LVL 4/40M Patient Type New Medical Decision Making Moderate Complexity Diagnoses Pancreatitis K85.90 GERD (gastroesophageal reflux disease) K21.9 Abnormal LFTs R79.89
--- NOTE | 2024-03-24 12:11 | Magnetic Resonance Report ---
MR MRCP HISTORY: 48 years-old Female pancreatitis, elevated liver enzymes acutely elevated LFTs COMPARISON: CT 03/23/2024, ultrasound 03/24/2024 TECHNIQUE: MRCP was obtained without IV contrast utilizing institutional protocol. FINDINGS: Hepatomegaly with hepatic steatosis. Spleen is mildly enlarged. Trace edema surrounds the pancreatic tail. Stone filled gallbladder with borderline gallbladder wall thickening. The study is motion degra ded. Common bile duct is upper limits of normal at 7 mm. There is a question 3 mm filling defect with in the distal common bile duct is proximal to the ampulla on image 181 of series 801. No pancreatic d uctal dilation is seen. There is mild nonspecific bilateral perinephric stranding without hydronephro sis. There are a few probable bilateral renal cysts. No lymphadenopathy or aortic aneurysm. Colonic d iverticulosis. Unremarkable soft tissues and osseous structures. IMPRESSION: 1. Cholelithiasis with nonspecific borderline gallbladder wall thickening. 2. Motion degradation limits dilation of the common bile duct which measures in the upper limits of n ormal at 7 mm. There is an equivocal 3 mm stone within the distal common bile duct. Correlate with se rum bilirubin. 3. Trace edema surrounding the pancreatic tail is suggestive of acute pancreatitis. Correlate with se rum lipase. 4. Hepatic steatosis with hepatosplenomegaly. ACT 112: Negative or not required by law. The above report was generated using voice recognition software. It may contain grammatical, syntax o r spelling errors. Electronically signed by: Flex Davis M.D. 03/24/2024 12:09 PM
[2024-03-24 13:40] LABS: Albumin Level 3.8 gm/dl (3.4-5.0); Bilirubin Direct 0.4 mg/dl (0-0.2); Total Protein 6.6 gm/dl (6.0-8.3)
[2024-03-24] MEDS: FAMOTIDINE 20MG IV PUSH 20 MG/5 ML SYR IV SCH (18:13)
[2024-03-24] MEDS: MoRPHine SULFATE 2 MG/ML CARP IV PRN (21:36)
[2024-03-25 06:17] LABS: Basophils # (auto) 0.04 K/uL (0.00-0.20); Basophils % (auto) 0.5 %; Eosinophils % (auto) 2.6 %; Hematocrit (blood only) 36.1 % (37.0-47.0); Hemoglobin 11.3 g/dl (12.0-16.0); Immature Granulocytes # (auto) 0.04 K/uL (0.01-0.20); Immature Granulocytes % (auto) 0.5 %; Lymphocytes # (auto) 1.56 K/uL (1.20-3.40); Mean Corpuscular Hemoglobin 26.9 pg (25.0-34.0); Mean Corpuscular Hgb Conc 31.3 g/dL (32.0-36.0); Mean Platelet Volume 10.1 fL (9.4-12.4); Monocytes # (auto) 0.59 K/uL (0.11-0.59); Monocytes % (auto) 7.6 %; Neutrophils # (auto) 5.38 K/uL (1.40-6.50); Neutrophils % (auto) 68.8 %; Platelet Count 187 K/uL (130-400); RDW Coefficient of Variation 14.1 % (11.5-14.5); RDW Standard Deviation 44.1 fL (36.4-46.3); White Blood Count 7.81 K/ul (4.8-10.8)
[2024-03-25 06:39] LABS: Albumin Globulin Ratio 1.2 (0.9-2); Albumin Level 3.4 gm/dl (3.4-5.0); BUN Creatinine Ratio 13.8 (10-20); Bilirubin Direct 0.3 mg/dl (0-0.2); Bilirubin,Total 0.7 mg/dl (0.2-1.0); Calcium 8.2 mg/dl (8.6-10.3); Creatinine Clr Calc Pharmacy 156.4 ml/min; Est GFR (African American) 126.3 ml/min; Globulin 2.8 gm/dl (2.5-4.0); Potassium 3.8 mmol/L (3.5-5.1); Total Protein 6.2 gm/dl (6.0-8.3)
--- NOTE | 2024-03-25 06:45 | Hospitalist Progress Note ---
Date of Service March 25, 2024 Assessment & Plan (1) Choledocholithiasis with obstruction: Plan: 03/24/24 MRCP radiologist impression: 3mm possibly obstructing stone in distal common bile duct, 7mm dilation of common bile duct; gallstones visualized in gallbladder but no signs of acute cholecystitis 03/25/[address] Mckenna (GI)'s evaluation of patient improving labs and clinical status, has recommended that patient have general surgery consult to evaluate for prophylactic cholecystectomy prior to discharge - lipase resolving: now down to 94 on 03/25/24 compared to 5501 on 03/24/24 - bilirubin resolving: Tbili 0.7 and direct bili 0.3, down from Tbili 2.4, direct bili 1.7 - LFTs resolving: AST 180, ALT 460, AKP 165; compared to AST 505, ALT 856, Alk Phos 226 - continue zofran for nausea prn, morphine for pain prn - general surgery consult ordered and following - transitioned from full fluids to low fat regular diet -> NPO FROM 00:01 on 03/26/24, ordered by Dr. Sauer (gen surg) - AM LFTs for 03/26/24 (2) Pancreatitis: Plan: appears to be resolving: lipase down to 94 on 03/25/24 compared to 5501 on 03/24/24, see above assessment (3) GERD (gastroesophageal reflux disease): Plan: chronic, with hiatal hernia - continue famotidine and protonix (4) Emesis, persistent: Plan: resolved, continue zofran for nausea prn Admission and Anticipated Discharge Date Admission Date: March 24, 2024 Supervising Physician Co-Signing Physician Notes I personally examined the patient and verified katz points of history and exam, discussed case, and agree with decision making and plan documented by Dr. Almendarez. Acute presentation of choledocholithiasis with elevated lipase, transaminase, bilirubin, and alkaline phosphatase. MRCP showed equivocal 3 mm stone at distal common bile duct which likely passed with improvement of liver function tests. Surgery consulted and plant to recheck LFTs in am and consider lap chol ecystectomy with intraop cholangiogram tomorrow. Patient NPO at midnight. Subjective Patient was seen and examined at bedside this morning, sitting up while eating breakfast, not in acute distress. Denies any nausea, vomiting, or significant abdominal pain over the past day, appetite improving and pt is interested in transitioning from full liquids to low fat regular diet today. Notes that her abdomen feels "bruised" on the inside, reassured patient that she may be a bit sore since her pancreas and liver took a hit from the obstructing stone in her common bile duct. Denies any fever, chest pain, SOB, pain with inspiration, or urinary concerns. Denies that she has had any bowel movements since being in the hospital, but has been trying to increase her fluids. Patient understanding of her situation and Dr. Mckenna (GI)'s recommendation to be seen by general surgery and evaluated for prophylactic cholecystectomy prior to discharge. Review of Systems Review of Systems: see HPI Physical Exam Physical Exam: constitutional: A&Ox4, no fever, body aches, chills HEENT: anicteric sclerae, EOM intact cardiovascular: RRR, no murmurs; 2+ carotid and radial pulses b/l pulmonary: clear to auscultation b/l GI: soft, non-tense, no guarding, mild tenderness to palpation of LUQ and RUQ; no arrest of inspiration with palpation inferior to R ribcage skin: no rashes, no bruising, no lesions on inspection Results & Data Results & Data Vital Signs (Past 12 Hours) Vital Signs Temp Pulse Resp BP Pulse Ox O2 Del Method 03/24/24 19:43 36.7 C 59 L 18 145/84 H 95 Room Air Resident Activity Tracking Resident Involvement: Resident Care Provided Care Provided: Adult Hospital Medicine (1) Choledocholithiasis with obstruction Cholecystitis presence: without cholecystitis Qualified Code(s): K80.51 - Calculus of bile duct without cholangitis or cholecystitis with obstruction (2) Pancreatitis Chronicity: acute Pancreatitis type: biliary Acute pancreatitis complication: unspecified Qualified Code(s): K85.10 - Biliary acute pancreatitis without necrosis or infection (3) GERD (gastroesophageal reflux disease) Esophagitis presence: esophagitis presence not specified Qualified Code(s): K21.9 - Gastro-esophageal reflux disease without esophagitis
--- NOTE | 2024-03-25 11:56 | Gastroenterology Progress Note ---
Date of Service March 25, 2024 Assessment & Plan (1) Choledocholithiasis with obstruction: Plan: Patient had a CBD stone on the MRCP 8 is the probable cause of her elevated LFTs as well as pancreatitis her LFTs are improving and her pancreatitis appears to be resolving the patient stone probably either passed or may have ball-valve I would at the current time monitor LFTs as well as get surgical evaluation for cholecystectomy the patient can get an intraoperative cholangiogram at the time of the cholecystectomy to evaluate if the stone has passed so she could get a preop ERCP (2) Pancreatitis: Plan: Most likely secondary to CBD stone her lipase has improved significantly she is almost pain-free though she has a very mild degree still remaining at the current time I would advance diet as tolerated and monitor clinically Admission and Anticipated Discharge Date Admission Date: March 24, 2024 Subjective Patient is lying comfortably in the bed she states that she feels much better today with abdominal pain was 7-8 yesterday it has come down to a 2 denies any nausea vomiting she is getting out of the bed on the whole clinically she feels much better and she is tolerating the diet Review of Systems Review of Systems: A 10 point review of systems was done Physical Exam Constitutional: WD/WN, vitals as above Respiratory: normal respiratory effort, lungs clear to auscultation Cardiovascular: RRR, no murmur, no edema Gastrointestinal (Abdomen): normal bowel sounds, soft, nontender, no hepatosplenomegaly Results & Data Results & Data Vital Signs (Past 12 Hours) Vital Signs Temp Pulse Resp BP Pulse Ox O2 Del Method 03/25/24 07:37 36.7 C 54 L 16 136/79 96 Room Air PG Care Time/CCT Total # of Minutes Spent Total Time Spent with Patient: Total time spent is greater than 50% in coordination of care (as documented) at patient's floor/unit and/or counseling patient: Coding Level of Care Code 37912 SUB INP/OBS CARE 2/35MIN Medical Decision Making Moderate Complexity Diagnoses Choledocholithiasis with obstruction K80.51 Pancreatitis K85.90
--- NOTE | 2024-03-25 16:58 | Surgery Consultation ---
Date of Consultation March 25, 2024 Assessment & Plan (1) Choledocholithiasis with obstruction: LFTs are still slightly elevated. MRCP was performed which shows likely a small common bile duct stone. I agree with GIs plan which would be to proceed with laparoscopic cholecystectomy with intraoperative cholangiogram. I am going to repeat LFTs in the morning and if for some reason they would dramatically increase we might reconsider doing ERCP first. We discussed the procedure in detail including the risks. We discussed bleeding, infection, injury to a bile duct or bile duct leak, DVT, PE, CO, CVA etc. Following our discussion I answered all of her questions. Assuming the LFTs do not dramatically jump tomorrow we will plan laparoscopic cholecystectomy with intraoperative cholangiogram. (2) Abnormal LFTs: (3) Pancreatitis: (4) Abdominal pain: (5) Cholelithiasis: (6) Cholecystitis: History of Present Illness Attending Physician: Ally Joe, History of Present Illness 48-year-old female admitted for abdominal pain nausea and vomiting. She was found to have gallstones likely common bile duct stone as well as mild pancreatitis. Currently feeling somewhat better than her admission. Allergies Allergy/AdvReac Type Severity Reaction Status Date / Time nickel Allergy Intermediate *All Unverified 03/24/24 08:49 metals cause skin irritation grass pollen Allergy Unknown Verified 03/24/24 08:49 Sunscreen Allergy Intermediate Skin Uncoded 03/24/24 08:49 Irritation Home Medications Medication Instructions Recorded Confirmed Type esomeprazole magnesium 20 mg 20 mg PO DAILY 02/20/21 03/24/24 History capsule,delayed release (Nexium) phentermine 15 mg capsule 15 mg PO DAILY #30 caps 01/24/24 03/24/24 Rx metformin 500 mg tablet,extended 500 mg PO BIDWMEAL #180 tabs 01/31/24 03/24/24 Rx release 24 hr Patient History Medical History History of gestational diabetes with 2 out of 3 pregnancies HH (hiatus hernia) History of colon polyps Gastritis History of gastroscopy 10/06/2018 & 10/30/2020 Surgical History History of salpingectomy History of colonoscopy 10/11/2017 (did have polyps & 1st degree hemorrhoids) 10/30/2020(results were normal History of ovarian cystectomy 2016 History of wisdom tooth extraction [id number] Family History Grandfather (Paternal) Myocardial infarction Father Diabetes Grandmother (Paternal) Cancer Pancreatic cancer Denies family history of Ovarian cancer Prostate cancer Breast cancer Colorectal cancer Social History Smoking Status: Never smoker Second Hand Exposure: No; Do You Dip or Chew Tobacco: No; Hx Alcohol Use: No Hx Substance Use: No Preferred Language: Danish Communication Ability: Effective Automatic Lehr Operator Required: No Beliefs That Will Affect Care: None marital status: / Current Living Situation: Parent Current Living Situation Comment: Lives w/parents & kids current occupational status: employed current occupation: Self employed How many Children do You have: 3 Feels Safe at Home: Yes caffeine: No Dental Care, Regularly: No Physical Activity Frequency: 1-2 Times per Week Seatbelt Use: always Sunscreen Use: No Review of Systems Review of Systems: All systems reviewed & are unremarkable except as noted in HPI & below Physical Exam Constitutional: WD/WN, vitals as above no acute distress and not ill appearing Eyes: PERRL, conjunctivae normal, anicteric sclerae EOM intact bilaterally ENMT: external ear and nose normal, oropharynx normal Ears: no hearing impairment Neck: trachea midline, no thyromegaly Respiratory: normal respiratory effort; no respiratory distress and does not use accessory muscles Cardiovascular: Rate/Rhythm: regular rate and regular rhythm Gastrointestinal (Abdomen): Soft. Mild mid abdominal tenderness. No guarding or rebound Skin: no rashes, warm and dry Psychiatric: Orientation: alert, oriented x 3 and cooperative Results & Data Vital Signs (Past 12 Hours) Vital Signs Temp Pulse Resp BP Pulse Ox O2 Del Method 03/25/24 14:32 36.7 C 61 16 153/89 H 98 Room Air 03/25/24 07:37 36.7 C 54 L 16 136/79 96 Room Air PG Care Time/CCT Total # of Minutes Spent Total Time Spent with Patient: Total time spent is greater than 50% in coordination of care (as documented) at patient's floor/unit and/or counseling patient: Coding Level of Care Code 39253 IN/OBS CONSULT LVL 4,60M Diagnoses Choledocholithiasis with obstruction K80.51 Abnormal LFTs R79.89 Pancreatitis K85.90 Abdominal pain R10.9 Cholelithiasis K80.20 Cholecystitis K81.9
[2024-03-26 06:18] LABS: Albumin Level 3.5 gm/dl (3.4-5.0); Bilirubin Direct 0.2 mg/dl (0-0.2); Bilirubin,Total 0.6 mg/dl (0.2-1.0); Total Protein 6.1 gm/dl (6.0-8.3)
--- NOTE | 2024-03-26 06:54 | Hospitalist Progress Note ---
Date of Service March 26, 2024 Assessment & Plan (1) Choledocholithiasis with obstruction: Plan: 03/24/24 MRCP radiologist impression: 3mm possibly obstructing stone in distal common bile duct, 7mm dilation of common bile duct; gallstones visualized in gallbladder but no signs of acute cholecystitis 03/25/[address] Mckenna (GI)'s evaluation of patient improving labs and clinical status, has recommended that patient have general surgery consult to evaluate for prophylactic cholecystectomy prior to discharge - lipase resolving: now down to 94 on 03/25/24 compared to 5501 on 03/24/24 - bilirubin resolving: Tbili 0.7 and direct bili 0.3, down from Tbili 2.4, direct bili 1.7 - LFTs resolving: AST 180, ALT 460, AKP 165; compared to AST 505, ALT 856, Alk Phos 226 - continue zofran for nausea prn, morphine for pain prn - general surgery consult ordered and following - transitioned from full fluids to low fat regular diet -> NPO FROM 00:01 on 03/26/24, ordered by Dr. Sauer (gen surg) - AM LFTs for 03/26/24 (2) Pancreatitis: Plan: appears to be resolving: lipase down to 94 on 03/25/24 compared to 5501 on 03/24/24, see above assessment (3) GERD (gastroesophageal reflux disease): Plan: chronic, with hiatal hernia - continue famotidine and protonix (4) Emesis, persistent: Plan: resolved, continue zofran for nausea prn Admission and Anticipated Discharge Date Admission Date: March 24, 2024 Results & Data Results & Data Vital Signs (Past 12 Hours) Vital Signs Temp Pulse Resp BP Pulse Ox O2 Del Method 03/25/24 20:19 36.8 C 56 L 16 176/94 H 98 Room Air (1) Choledocholithiasis with obstruction Cholecystitis presence: without cholecystitis Qualified Code(s): K80.51 - Calculus of bile duct without cholangitis or cholecystitis with obstruction (2) Pancreatitis Acute pancreatitis complication: unspecified Chronicity: acute Pancreatitis type: biliary Qualified Code(s): K85.10 - Biliary acute pancreatitis without necrosis or infection (3) GERD (gastroesophageal reflux disease) Esophagitis presence: esophagitis presence not specified Qualified Code(s): K21.9 - Gastro-esophageal reflux disease without esophagitis
[2024-03-26 09:53] LABS: Hep B Surface Ag with confirm Negative (Negative)
[2024-03-26 09:58] LABS: Hep C Ab Rflx HepCQuant RNA Negative (Negative)
--- NOTE | 2024-03-26 10:25 | Gastroenterology Progress Note ---
Date of Service March 26, 2024 Assessment & Plan (1) Cholelithiasis: Plan: 48 year old female admitted w/ abd pain, nausea, vomiting, imaging concerning for gallstones, possibile CBD stone and suspected gallstone pancreatitis. Her lipase was elevated at 5,501 at admission and fell overnight to 94, her transaminases also have slowly began to improve. Perhaps she passed the distal CBD stone. She is to go for CCY with IOC today. Pending results of IOC, ERCP may be indicated. Continue conservative measures for treatment of acute pancreatitis. Notes she tolerated advancing diet last evening. Low fat diet as tolerated once cleared for oral intake. Anti-emetics PRN. Analgesis as needed. I spent a total of 40 minutes on the date of service in review of patient's record, and previously obtained information in person and appropriate medical visit, discussion and education of plan, with patient and/or caregiver, placing orders for tests/referral/procedures as medically necessary and documentation of pertinent clinical information in patient's medical records for their visit today. Admission and Anticipated Discharge Date Admission Date: March 24, 2024 Supervising Physician Co-Signing Physician Notes Patient not seen as she was in the OR getting cholecystectomy with possible with IOC would follow-up on the results of the IOC her LFTs have improved today and she was quite asymptomatic yesterday Subjective Pt was seen and evaluated, chart reviewed. Feeling improved. Abd pain nearly resolved. No nausea, vomiting To go for CCY w/ IOC today. Review of Systems Review of Systems: All other findings negative except as noted in HPI. Physical Exam Constitutional: WD/WN, vitals as above Respiratory: normal respiratory effort, lungs clear to auscultation Cardiovascular: RRR, no murmur, no edema Gastrointestinal (Abdomen): normal bowel sounds, soft, nontender, no hepatosplenomegaly Skin: no rashes, warm and dry Results & Data Results & Data Vital Signs (Past 12 Hours) Vital Signs Temp Pulse Resp BP Pulse Ox O2 Del Method 03/26/24 07:03 36.6 C 60 18 158/90 H 97 Room Air Laboratory Results 03/26/24 03/24/24 Range/Units 05:37 12:43 Total Bilirubin 0.6 (0.2-1.0) mg/dl Direct Bilirubin 0.2 (0-0.2) mg/dl AST 85 H (13-39) U/L ALT 322 H (7-52) U/L Alkaline Phosphatase 148 H (34-104) U/L Total Protein 6.1 (6.0-8.3) gm/dl Albumin 3.5 (3.4-5.0) gm/dl Hep Bs Antigen Negative (Negative) Hepatitis C Antibody Negative (Negative) PG Care Time/CCT Total # of Minutes Spent Total Time Spent with Patient: Total time spent is greater than 50% in coordination of care (as documented) at patient's floor/unit and/or counseling patient: Coding Level of Care Code 46473 SUB INP/OBS CARE MIN Diagnoses Cholelithiasis K80.20
[2024-03-26] MEDS ORDERED: LIDOCAINE 2% 2 ML VIAL/AMP(20MG/ML) INFIL ONE (12:43)
[2024-03-26] MEDS ORDERED: ROCURONIUM BROMIDE 10 MG/ML 5 ML VIAL IV ONE ×2 (12:43→14:34)
[2024-03-26] MEDS ORDERED: PROPOFOL IV EMULSION 10 MG/ML 20 ML VIAL IV ONE (12:43)
[2024-03-26] MEDS ORDERED: DEXAMETHASONE SOD INJ 4 MG/ML VIAL ONE (12:43)
[2024-03-26] MEDS ORDERED: MIDAZOLAM HCL 1 MG/ML 2ML VIAL ONE (12:43)
[2024-03-26] MEDS ORDERED: ONDANSETRON INJ 2 MG/ML 2 ML VIAL ONE ×2 (12:43→15:19)
[2024-03-26] MEDS ORDERED: fentaNYL citrate PF 100 MCG/2 ML VIAL ONE (12:43)
--- NOTE | 2024-03-26 12:59 | Anesthesiology Consultation ---
Date of Service March 26, 2024 Assessment & Plan (1) Encounter for pre-operative examination: Chart Review Chart Review: Acceptable Risk for Surgery and Patient NOT seen in Pre Admission Testing Consults Requested none History Surgery Operation Date: 03/26/24 11:50 Proposed Procedures p Laparoscopic Cholecystectomy with Interoperative Cholangiogram - Ad Sauer DO Height/Weight Height: 5 ft 8 in Weight: 113 kg Allergies Allergy/AdvReac Type Severity Reaction Status Date / Time nickel Allergy Intermediate *All Unverified 03/24/24 08:49 metals cause skin irritation grass pollen Allergy Unknown Verified 03/24/24 08:49 Sunscreen Allergy Intermediate Skin Uncoded 03/24/24 08:49 Irritation Medications Home Medications Medication Instructions Recorded Confirmed Last Taken esomeprazole magnesium 20 mg 20 mg PO DAILY 02/20/21 03/24/24 Unknown capsule,delayed release (Nexium) phentermine 15 mg capsule 15 mg PO DAILY #30 caps 01/24/24 03/24/24 Unknown metformin 500 mg tablet,extended 500 mg PO BIDWMEAL #180 tabs 01/31/24 03/24/24 Unknown release 24 hr Active Medications Generic Name Dose Route Start Last Admin Trade Name Freq PRN Reason Stop Dose Admin Pantoprazole Sodium 40 mg/ 10 mls @ 5 mls/min 03/24/24 11:00 03/26/24 10:28 Syringe IV 04/23/24 10:59 5 mls/min DAILY@1100 DENYS Administration Famotidine 20 mg in 5 mls @ 2.5 mls/min 03/24/24 18:00 03/26/24 05:32 Pepcid 20mg Iv Push IV 04/23/24 17:59 2.5 mls/min Q12H DENYS Administration Morphine Sulfate 2 mg 03/24/24 06:13 03/26/24 03:04 Morphine Sulfate 2 Mg/Ml Carp IV 04/07/24 06:12 2 mg Q3H PRN Administration Pain (1-5 intensity) Ondansetron HCl 4 mg 03/24/24 06:13 03/25/24 19:47 Ondansetron Inj 2 Mg/Ml 2 Ml Vial IV 04/23/24 06:12 4 mg Q6H PRN Administration Nausea Past Medical History Medical History History of gestational diabetes with 2 out of 3 pregnancies HH (hiatus hernia) History of colon polyps Gastritis History of gastroscopy 10/06/2018 & 10/30/2020 Past Family History Family History Grandfather (Paternal) Myocardial infarction Father Diabetes Grandmother (Paternal) Cancer Pancreatic cancer Denies family history of Ovarian cancer Prostate cancer Breast cancer Colorectal cancer Past Surgical History Surgical History History of salpingectomy History of colonoscopy 10/11/2017 (did have polyps & 1st degree hemorrhoids) 10/30/2020(results were normal History of ovarian cystectomy 2016 History of wisdom tooth extraction [id number] Social History Smoking Status: Never smoker Do You Dip or Chew Tobacco: No Hx Alcohol Use: No Hx Substance Use: No Physical Exam Vital Signs Last Vital Signs Temp 97.9 F 03/26/24 07:03 Pulse 60 03/26/24 07:03 Resp 18 03/26/24 07:03 BP 158/90 H 03/26/24 07:03 Pulse Ox 97 03/26/24 07:03 O2 Del Method Room Air 03/26/24 07:03 Testing Laboratory Results 03/25/24 05:43 03/25/24 05:43 Urine Color Dark Yellow 03/24/24 06:46 Urine Appearance Clear (Clear) 03/24/24 06:46 Urine pH 5.0 (4.5-7.5) 03/24/24 06:46 Ur Specific [place] > 1.045 (1.000-1.030) H 03/24/24 06:46 Urine Protein Trace (Negative) H 03/24/24 06:46 Urine Glucose (UA) Negative (Negative) 03/24/24 06:46 Urine Ketones 2+ (Negative) H 03/24/24 06:46 Urine Nitrite Negative (Negative) 03/24/24 06:46 Ur Leukocyte Esterase Negative (Negative) 03/24/24 06:46 Urine WBC (Auto) 0-5 /hpf (0-5) 03/24/24 06:46 Urine RBC (Auto) 0-2 /hpf (0-2) 03/24/24 06:46 U Hyaline Cast (Auto) 0-2 /lpf (0-2) 03/24/24 06:46 U Epithel Cells (Auto) 0-2 /hpf (0-2) 03/24/24 06:46 Urine Bacteria (Auto) None Seen (None Seen) 03/24/24 06:46
[2024-03-26] MEDS ORDERED: ATROPINE SULFATE 0.1 MG/ML 10ML SYR IV PRN (13:01)
[2024-03-26] MEDS ORDERED: ONDANSETRON INJ 2 MG/ML 2 ML VIAL IV PRN (13:01)
[2024-03-26] MEDS ORDERED: ePHEDrine sulfate 50 MG/ML AMP IV PRN (13:01)
[2024-03-26] MEDS: LACTATED RINGER'S 1,000 ML IV SCH (13:04)
--- NOTE | 2024-03-26 13:10 | History & Physical Bridge Note ---
Date of Service March 26, 2024 History & Physical Bridge Note I have examined the patient, reviewed the History & Physical and in the interval since the performance of the History & Physical I have noted the following changes of clinical significance: no changes noted
[2024-03-26] MEDS ORDERED: ceFAZolin 2000MG 2,000 MG/15 ML SYR IV ONE (13:27)
[2024-03-26] MEDS: ceFAZolin 2,000 MG/15 ML IV PUSH IV ONE (13:40)
[2024-03-26] MEDS ORDERED: SUGAMMADEX SODIUM 200 MG/2 ML VIAL IV ONE (14:23)
[2024-03-26] MEDS ORDERED: LABETALOL HCL IV 5 MG/ML 20ML IV ONE (14:23)
[2024-03-26] MEDS: OPTIRAY 300 IV ONE (15:25)
[2024-03-26] MEDS: BUPIVACAINE/EPINEPHRINE 0.5% MPF 1:200,000 30 ML VIAL ONE (15:29)
--- NOTE | 2024-03-26 15:44 | Operative Report ---
PG Post Operative Report Pre & Post Diagnosis Operation Date: 03/26/24 11:50 Pre-Op Diagnosis: Choledocholithiasis with obstruction Post-Op Diagnosis: Choledocholithiasis with obstruction; suspected common bile duct partial tear/inury I identified the patient and participated in the time-out.: Yes Procedure Operation Date: 03/26/24 11:50 Actual Procedures p Laparoscopic Cholecystectomy with Interoperative Cholangiogram(Not Applicable) - Ad Sauer DO Surgeon Ad Sauer DO Material Mixer Dr. Burt Longoria D.O. Estimated Blood Loss 75 Findings Consistent with Post-Op Diagnosis Specimens gallbladder Complications suspected common bile duct partial tear/injury Description of Procedure After informed consent was obtained the patient was taken to the operating room and placed in the supine position. After successful intubation the abdomen was sterilely prepped and draped in usual fashion. A periumbilical incision was made with an 11 blade scalpel and carried down through the soft tissue using electrocautery. The anterior rectus fascia was opened using electrocautery and 2 #0 Vicryl stay sutures were placed. The peritoneum was elevated with hemostats and incised under direct vision using Metzenbaum scissors. A finger sweep was performed and a 12 mm Metz trocar was placed. The abdomen was insufflated to 18 mmHg. The laparoscope was inserted and the abdomen was examined in 360. No gross abnormalities were identified. A subxiphoid 5 mm port and 2 right upper quadrant 5 mm ports were placed under direct vision. The patient was placed in a reverse Trendelenburg position and slightly airplaned to the left. The gallbladder was grasped and elevated superiorly and laterally. A [place] dissector was used to take down adhesions around the neck of the gallbladder. The cystic duct was identified and skeletonized with blunt dissection. It was during this process that I noticed a small amount of bile coming from the cystic duct/common bile duct junction. There appeared to be a small hole right at the junction where we had tented the cystic duct. At this point I called my partner Dr. Longoria in to assist with the remainder of the case. We decided to perform an intraoperative cholangiogram through the small opening. A 4 small 5 mm trocar was placed in the right upper quadrant. Cholangiogram catheter was advanced through it and into the small opening. The balloon was deployed. I performed a cholangiogram. I was not definitive to me but it appeared as though the balloon of the catheter was in fact in the common bile duct. It was a small probably 3 mm opening. I considered tangentially placing a clip however I was concerned this could potentially cause a stricture of the common bile duct. At this point I scrubbed out of the case and called Dr. Evans one of our converter operator. He felt strongly that we could remove the gallbladder place a drain and then he would perform an ERCP with a covered stent across that area. I scrubbed back into the case. I was able to skeletonize the cystic duct proximal to the previously mentioned opening. It was clipped twice proximally and once distally and transected using a laparoscopic scissor. In similar fashion the cystic artery was identified and skeletonized clipped and divided. The gallbladder was removed from the gallbladder fossa with electrocautery. It was placed into an Endo Catch bag. Thorough irrigation was performed. At the end of the procedure there was adequate hemostasis . A final look around the abdomen showed no other abnormalities. A 10 flat Liam-Aparicio drain was placed in the right upper quadrant under the right lobe of the liver. It was brought out through one of the trocar sites and secured using 0 Vicryl. The gallbladder and trochars were all removed and the abdomen was desufflated. The fascia of the camera port was closed using 0 Vicryl in a [id number] fashion. All the wounds were irrigated and closed using 4-0 Monocryl. Marcaine was injected around them for postoperative analgesia and skin glue used as a dressing. The patient was awakened , extubated and transferred to recovery in stable condition. I attest to the content of the Intraoperative Record and any orders documented therein. Any exceptions are noted below.
[2024-03-26] MEDS: fentaNYL citrate PF 100 MCG/2 ML VIAL IV PRN (16:16)
[2024-03-26] MEDS: PROMETHAZINE HCL INJ 25 MG/ML 1 ML VIAL ONE (16:37)
--- NOTE | 2024-03-26 17:02 | Anesthesiology Progress Note ---
Date of Service March 26, 2024 Anesthesia Post Procedure Vital Signs Vital Signs: Temp Pulse Pulse Resp BP Pulse Ox O2 Del Method 03/26/24 16:50 36.2 C L 80 12 155/90 H 93 Nasal Cannula 03/26/24 16:40 82 11 L 158/98 H 93 Nasal Cannula 03/26/24 16:30 82 16 156/89 H 93 Nasal Cannula 03/26/24 16:20 83 15 151/84 H 93 Nasal Cannula 03/26/24 16:10 82 16 163/84 H 92 Nasal Cannula 03/26/24 16:00 86 13 160/92 H 96 Oxymask 03/26/24 15:50 74 16 151/91 H 96 Oxymask 03/26/24 15:40 36.1 C L 72 16 148/88 H 94 Oxymask 03/26/24 12:58 36.7 C 85 20 180/105 H 98 Room Air 03/26/24 07:03 36.6 C 60 18 158/90 H 97 Room Air 03/25/24 20:19 36.8 C 56 L 16 176/94 H 98 Room Air O2 Flow Rate 03/26/24 16:50 2 03/26/24 16:40 2 03/26/24 16:30 2 03/26/24 16:20 2 03/26/24 16:10 2 03/26/24 16:00 6 03/26/24 15:50 10 03/26/24 15:40 10 03/26/24 12:58 03/26/24 07:03 03/25/24 20:19 Pain Intensity Abdomen: Pain Intensity: 7 Transfer of Care Handoff Completed per policy Notes Mental Status: alert / awake / arousable and participated in evaluation Patient Amnestic to Procedure: Yes Nausea / Vomiting: adequately controlled Pain: adequately controlled Airway Patency, RR, SpO2: stable & adequate BP & HR: stable & adequate Hydration State: stable & adequate Anesthetic Complications: no major complications apparent and Pt Satisfied with anesthetic care
[2024-03-26 17:06] VITALS: RESP 14
[2024-03-26] MEDS: PROMETHAZINE 6.25 MG/50.25 ML BAG IV STA (17:06)
[2024-03-26 17:26] VITALS: PULSE 77; O2SAT 99
--- NOTE | 2024-03-26 18:01 | Billing Data ---
Date of Service March 26, 2024 Coding Level of Care Code 70222 IN/OBS DISCH 30 MIN/LESS
--- NOTE | 2024-03-26 18:01 | Discharge Summary ---
Discharge Summary Date of Service March 26, 2024 Principal Dx & Hospital Course #1 = Principal Diagnosis (1) Choledocholithiasis with obstruction: Clinically improvedcourse was consistent with gallstone pancreatitis with stone having passed. Cholecystectomy todaysmall defect noted in bile ducttransfer for ERCP and stenting given that that is not available at the current facility (2) Pancreatitis: gallstone pancreatitisclinically improved. Advance diet post ERCP and stenting (3) GERD (gastroesophageal reflux disease): chronic, with hiatal hernia - continue famotidine and protonix Plan clinically had improved from gallstone pancreatitiswas for cholecystectomy todaysmall defect noted in bile ductfor transfer for ERCP and stenting given that this is not available at present facility. Patient accepted to [facility] with ERCP capabilities Notes For Next Care Provider Medication Changes From Visit per receiving facility Admission HPI Per Admitting Provider Isaura Garsia is a 48 year-old female who presented to the ED for ongoing symptoms of abdominal pain, nausea for several weeks. She has a PMH of prediabetes, GERD, hiatal hernia, and obesity. She reports that for several weeks she has had episodes of nausea, vomiting and generally feeling unwell. Has history of recent travel to [facility] and then [place] in mid February where she states she could barely take in any food because it would immediately lead to vomiting. States she initially thought it was just secondary to jet-lag or a food intolerance, and when she returned to [place] she resumed her home metformin which only seemed to make her symptoms worsen. States in the past month she has had BMs that have ranged from dark/tar like several weeks ago to pale/watery/pencil thin in the past few days. Today she states that the abdominal discomfort does not seem to be localized to one precise region. Denies any recent insect bites while at home or abroad in [facility]. ED Course: -CT A/P, US abdomen -CBC, CMP, Lipase, test Updated Medication List Medication Instructions Recorded Confirmed Type esomeprazole magnesium 20 mg 20 mg PO DAILY 02/20/21 03/24/24 History capsule,delayed release (Nexium) phentermine 15 mg capsule 15 mg PO DAILY #30 caps 01/24/24 03/24/24 Rx metformin 500 mg tablet,extended 500 mg PO BIDWMEAL #180 tabs 01/31/24 03/24/24 Rx release 24 hr Hospital Stay Data Consultations 03/24/24 01:15 ED Decision to Admit Stat 03/24/24 01:16 Consult Gastroenterology Stat 03/25/24 13:14 Consult General Surgery Routine Procedures Performed Operation Date: 03/26/24 11:50 Actual Procedures p Laparoscopic Cholecystectomy with Interoperative Cholangiogram(Not Applicable) - Ad Sauer, DO Diagnostic Imagining Performed 03/23/24 22:17 CT Abd and Pelvis [CT abd pelvis IV con only] Stat 03/24/24 US gallbladder Stat 03/24/24 01:15 MRI MRCP [MR MRCP] Stat 03/26/24 [place] cholangiogram OR Routine Pending Results Patient Have Any Pending Studies at Discharge: No Discharge Instructions Given to Patient (Per Discharging Provider) Choledocholithiasis with obstruction -S/P laparoscopic cholecystectomy and IOC with Dr. Sauer on 03/26/24, noted to have suspected common bile duct partial tear/injury during operation -Case was discussed with Dr. Evans at [facility], will need transfer to [facility] for ERCP and stent placement -Transfer Center utilized and patient was accepted by receiving physician, Dr. dA Moise -MRCP showed 3mm possibly obstructing stone in distal common bile duct, 7mm dilation of common bile duct; gallstones visualized in gallbladder but no signs of acute cholecystitis -AST/ALT/Alk phos downtrending Pancreatitis -Lipase down to 94 on 03/25/24 compared to 5501 on 03/24/24 GERD (gastroesophageal reflux disease) -Chronic, with hiatal hernia -Continue famotidine and Protonix Emesis, persistent -Resolved, continue Zofran for nausea PRN Total Time Total Time Spent Total Time Spent (In Minutes): <30
[2024-03-26 18:02] VITALS: BP 167/104; TEMP 97.5
--- NOTE | 2024-03-26 19:34 | Fluoroscopy Report ---
[place] cholangiogram OR CLINICAL HISTORY: ADD ON CHOLANGIOGRAM TECHNIQUE: 9 views were obtained with the C-arm in the OR with the above procedure. Total fluoroscopy time was 13.6 seconds. Radiation dose was 8.11 mGy. Comparison: Comparison is made to MRCP 03/24/2024 FINDINGS/IMPRESSION: Intraoperative images were obtained of cholangiogram. Numerous filling defects a re seen in the gallbladder compatible with stones. Biliary duct filling defect is suggested. Please correlate with intraoperative fluoroscopy and operative report. ACT 112: Negative or not required by law. Electronically signed by: Dung Delacruz M.D. 03/26/2024 7:32 PM
[2024-03-27 15:22] LABS: Anti Nuclear Antibody Screen POSITIVE (NEGATIVE)
[2024-03-27 15:28] LABS: Hepatitis A Antibody IgM NON-REACTIVE (NON-REACTIVE); Hepatitis B Core Antibody IgM NON-REACTIVE (NON-REACTIVE)
[2024-03-28 10:48] LABS: ANA Pattern Nuclear, Speckled; ANA Titer 1:40 titer
== END 2024-03-26 18:59 | disposition short-term general hospital (02) ==
LOC: ED 20:43 → EDINP 20:43 → SUATTDRO 03-24 04:25 → 3E 03-24 06:13
DX: Z68.37 Body mass index [BMI] 37.0-37.9, adult; E66.9 Obesity, unspecified; Z87.19 Personal history of other diseases of the digestive system; E11.9 Type 2 diabetes mellitus without complications; K76.0 Fatty (change of) liver, not elsewhere classified; Z79.84 Long term (current) use of oral hypoglycemic drugs; K21.9 Gastro-esophageal reflux disease without esophagitis; Z91.09 Other allergy status, other than to drugs and biological substances; K80.65 Calculus of gallbladder and bile duct with chronic cholecystitis with obstruction; Z79.899 Other long term (current) drug therapy; K85.10 Biliary acute pancreatitis without necrosis or infection; K44.9 Diaphragmatic hernia without obstruction or gangrene